=== PATIENT | female | born 1985 | race Caucasian/White ===

== ENCOUNTER 2024-03-03 10:32 | Emergency (ER) | payer BC ==
[~2024-03-03] VITALS: Ht 165.1 cm; Wt 61.9 kg
[2024-03-03 10:48] VITALS: BP 153/82; TEMP 98.2
[2024-03-03] MEDS ORDERED: KETOROLAC TROMETHAMINE 15 MG/ML VIAL ONE (14:14)
[2024-03-03] MEDS: KETOROLAC TROMETHAMINE 15 MG/ML VIAL IM ONE (14:18)
[2024-03-03 14:37] VITALS: O2SAT 98
== END 2024-03-03 14:37 | disposition home or self-care (01) ==
LOC: ER 10:38
DX: M25.519 Pain in unspecified shoulder (principal); R20.2 Paresthesia of skin; R20.0 Anesthesia of skin; M54.50 Low back pain, unspecified; M54.2 Cervicalgia
CPT/HCPCS: 99283; 96372; J1885